=== PATIENT | male | born 1950 ===

== ENCOUNTER 2021-01-12 21:44 | Emergency (ER) | payer MEDICARE ==
[2021-01-12] MEDS ORDERED: Famotidine 20 MG Tab PO ONE (22:24)
[2021-01-12] MEDS ORDERED: methylPREDNISolone Sodium Succinate 125 MG/2 ML SDV IM ONE (22:24)
[2021-01-12] MEDS ORDERED: diphenhydrAMINE 50 MG Cap PO ONE (22:24)
[2021-01-12] MEDS ORDERED: Sulfamethoxazole/Trimethoprim 800-160 MG Tab PO ONE (22:26)
[2021-01-12] MEDS ORDERED: Loratadine 10 MG Tab PO ONE (22:26)
--- NOTE | 2021-01-12 22:38 | EDM.PDOC ---
ED HPI GENERAL MEDICAL PROBLEM - General Chief Complaint: Skin Complaint Stated Complaint: bug bite Time Seen by Provider: 01/12/21 22:00 Source of Information: Reports: Patient History Limitations: Reports: No Limitations - History of Present Illness INITIAL COMMENTS - FREE TEXT/NARRATIVE: c/o allergic reaction pt at [facility] 2d ago, in water, removed 4 leeches from around R ankle in grass yesterday and had a bite at the back of his ankle, thinks he may have squeezed something out denies h/o cellulitis gets frequent large localized reactions to wood ticks and insects, not to mosquitos denies asthma or hayfever farms - Related Data Allergies Allergy/AdvReac Type Severity Reaction Status Date / Time No Known Allergies Allergy Verified 01/12/21 22:32 Home Meds: Home Meds Loratadine 10 mg PO DAILY #5 tablet 01/12/21 [Rx] Sulfamethoxazole/Trimethoprim [Sulfamethoxazole-Tmp Ds Tablet] 1 each PO BID #10 tablet 01/12/21 [Rx] Triamcinolone Acetonide [Triamcinolone Acetonide 0.1% Crm] 1 applic TOP BID #30 gm 01/12/21 [Rx] predniSONE 20 mg PO ASDIRECTED #7 tab 01/12/21 [Rx] Past Medical History Cardiovascular History: Reports: High Cholesterol, Hypertension Genitourinary History: Reports: Prostate Disorder - Past Surgical History GI Surgical History: Reports: Hernia, Inguinal Social & Family History - Tobacco Use Tobacco Use Status *Q: Never Tobacco User - Caffeine Use Caffeine Use: Reports: Coffee - Alcohol Use Days Per Week of Alcohol Use: 3 Number of Drinks Per Day: 3 Total Drinks Per Week: 9 - Recreational Drug Use Recreational Drug Use: No ED ROS GENERAL - Review of Systems Review Of Systems: See Below Constitutional: Reports: No Symptoms HEENT: Reports: No Symptoms Respiratory: Reports: No Symptoms Cardiovascular: Reports: No Symptoms Endocrine: Reports: No Symptoms GI/Abdominal: Reports: No Symptoms : Reports: No Symptoms Musculoskeletal: Reports: No Symptoms Skin: Reports: Pruritis, Lumps Neurological: Reports: No Symptoms Psychiatric: Reports: No Symptoms Hematologic/Lymphatic: Reports: No Symptoms Immunologic: Reports: No Symptoms ED EXAM, SKIN/RASH Exam: See Below Exam Limited By: No Limitations General Appearance: Alert, WD/WN, No Apparent Distress Ears: Hearing Grossly Normal Throat/Mouth: Normal Inspection Head: Atraumatic Neck: Normal Inspection, Supple Respiratory/Chest: No Respiratory Distress Cardiovascular: Regular Rate, Rhythm Extremities: Other (1-2+ ankle edema on R, 1+ edema of posterior 1/3rd of food, localized swell and edema and pink flush in 3 x 3 cm areas x 5 all c/w allergy) Course - Vital Signs Last Recorded V/S: Last Vital Signs Temp 37.1 C 01/12/21 22:01 Pulse 99 01/12/21 22:01 Resp 18 01/12/21 22:01 BP 144/87 H 01/12/21 22:01 Pulse Ox 96 01/12/21 22:01 - Orders/Labs/Meds Orders: Active Orders 24 hr Category Date Time Status Famotidine [Pepcid] Med 01/12/21 22:24 Once 20 mg PO ONETIME ONE Loratadine [Claritin] Med 01/12/21 22:26 Once 10 mg PO ONETIME ONE Sulfamethoxazole/Trimethoprim [Septra DS] Med 01/12/21 22:26 Once 1 tab PO ONETIME ONE diphenhydrAMINE [Benadryl] Med 01/12/21 22:24 Once 50 mg PO ONETIME ONE methylPREDNISolone Sod Succ [Solu-MEDROL] Med 01/12/21 22:24 Once 125 mg IM ONETIME ONE - Re-Assessments/Exams Free Text/Narrative Re-Assessment/Exam: 01/12/21 22:50 no clinical evidence of secondary infection, has localized allergic reaction doubt role for an antbx, yet pt reported possible drainage from the bug bite ov er the attachment of the Achilles 0.1% TAC likely to be of limited benefit (no eczema) yet pt requested a topical agent would expect rapid improvement overnight, pt informed Departure - Departure Time of Disposition: 22:27 Disposition: Home, Self-Care 01 Condition: Good Clinical Impression: Allergic reaction, Bug bite, Edema of right lower extremity - Discharge Information *PRESCRIPTION DRUG MONITORING PROGRAM REVIEWED*: Not Applicable *COPY OF PRESCRIPTION DRUG MONITORING REPORT IN PATIENT MAYI: Not Applicable Prescriptions: Loratadine 10 mg PO DAILY #5 tablet predniSONE 20 mg PO ASDIRECTED #7 tab Sulfamethoxazole/Trimethoprim [Sulfamethoxazole-Tmp Ds Tablet] 1 each PO BID #10 tablet Triamcinolone Acetonide [Triamcinolone Acetonide 0.1% Crm] 1 applic TOP BID #30 gm Instructions: Allergies, Adult, Insect Bite, Adult Additional Instructions: For swelling and itching, take prednisone 20 mg 2 tab daily for 2 days, then 1 tab daily for 3 days. For allergic reaction, take loratadine 10 mg 1 tab daily for 5 days. For itching, use cool compresses for 10 minutes every hour as needed. For possible infection, take sulfa antibiotic 1 tab 2 times a day for 5 days. For itching, use 0.1 triamcinolone cream 2 times a day for 5 days. See your doctor in 5-7 days as needed (if not completely back to normal). See your doctor the same day or return to Emergency Department if you are feeling worse. Sepsis Event Note (ED) - Evaluation Sepsis Screening Result: No Definite Risk - Focused Exam Vital Signs: Vital Signs Temp Pulse Resp BP Pulse Ox 01/12/21 22:01 37.1 C 99 18 144/87 H 96 - My Orders Last 24 Hours: My Active Orders 01/12/21 22:24 Famotidine [Pepcid] 20 mg PO ONETIME ONE diphenhydrAMINE [Benadryl] 50 mg PO ONETIME ONE methylPREDNISolone Sod Succ [Solu-MEDROL] 125 mg IM ONETIME ONE 01/12/21 22:26 Loratadine [Claritin] 10 mg PO ONETIME ONE Sulfamethoxazole/Trimethoprim [Septra DS] 1 tab PO ONETIME ONE - Assessment/Plan Last 24 Hours: My Active Orders 01/12/21 22:24 Famotidine [Pepcid] 20 mg PO ONETIME ONE diphenhydrAMINE [Benadryl] 50 mg PO ONETIME ONE methylPREDNISolone Sod Succ [Solu-MEDROL] 125 mg IM ONETIME ONE 01/12/21 22:26 Loratadine [Claritin] 10 mg PO ONETIME ONE Sulfamethoxazole/Trimethoprim [Septra DS] 1 tab PO ONETIME ONE
== END 2021-01-12 22:51 | disposition home or self-care (01) ==
LOC: FB.ED 21:44
DX: S90.561A Insect bite (nonvenomous), right ankle, initial encounter (principal); R60.0 Localized edema; I10 Essential (primary) hypertension; W57.XXXA Bitten or stung by nonvenomous insect and other nonvenomous arthropods, initial encounter
CPT/HCPCS: 96372; 99283; A9270; J2930